=== PATIENT | female | born 1970 | race African-American/Black ===

== ENCOUNTER 2017-02-21 09:27 | Emergency (ER) | payer OTHER ==
[2017-02-21] MEDS ORDERED: Naproxen 500 MG TAB ONE (09:55)
[2017-02-21] MEDS ORDERED: HYDROcodone/Acetaminophen 10/325 mg Tablet ONE (09:55)
[2017-02-21] MEDS ORDERED: Diazepam 5 MG TAB ONE (09:55)
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
== END 2017-02-21 11:45 | disposition home or self-care (01) ==
LOC: MADERS 09:27
DX: M54.2 Cervicalgia (principal); T07 Unspecified multiple injuries; V89.2XXA Person injured in unspecified motor-vehicle accident, traffic, initial encounter; Y92.411 Interstate highway as the place of occurrence of the external cause
CPT/HCPCS: 70450; 72125; G0390